=== PATIENT | male | born 1995 | race Hispanic/Latino ===

== ENCOUNTER 2017-07-03 03:05 | Emergency (ER) | payer OTHER, SELFPAY ==
[2017-07-03 03:56] LABS: #Basophils 0.1 thou/uL (0.0-0.2); #Lymphocytes 2.7 thou/uL (1.20-3.40); #Monocytes 0.4 thou/uL (0.11-0.59); #Neutrophils 5.4 thou/uL (1.40-6.50); %Basophils 0.8 % (0.0-1.0); %Eosinophils 0.5 % (0.0-10.0); %Lymphocytes 31.1 % (28.0-48.0); %Monocytes 4.4 % (0.0-4.0); %Neutrophils 63.2 % (31.0-61.0); Hemoglobin 13.8 g/dL (14.0-18.0); Mean Corpuscular HGB CONC 33.6 g/dL (32.0-36.0); Mean Corpuscular Hemoglobin 29.9 pg (25.0-35.0); Mean Corpuscular Volume 88.8 fl (77.0-87.0); Platelet Count 229 thou/uL (130-400); RBC Distribution Width 11.8 % (11.5-14.5); Red Blood Cell (RBC) Count 4.62 mill/uL (4.00-5.20); White Blood Cell (WBC) Count 8.6 thou/uL (4.8-10.8)
[2017-07-03 04:09] LABS: ALT (SGPT) 17 U/L (8-55); AST (SGOT) 24 U/L (10-45); Albumin 4.5 g/dL (3.5-5.0); Alcohol 174 mg/dL (Less than 10); Alkaline Phosphatase 95 U/L (Less than 750); Anion Gap 15 mmol/L (10-20); BUN (Urea Nitrogen) 13 mg/dL (8.4-21.0); Bilirubin, Total 0.3 mg/dL (0.2-1.2); Calc. Creatinine Clearance 0 mL/min (70-130); Calcium 9.2 mg/dL (7.8-10.44); Carbon Dioxide 24 mmol/L (22-29); Chloride 102 mmol/L (98-107); Estimated GFR-MDRD Greater than 90; Globulin 2.8 g/dL (2.4-3.5); Glucose 110 mg/dL (70-105); Potassium 3.1 mmol/L (3.5-5.1); Protein, Total 7.3 g/dL (6.0-8.3); Sodium 138 mmol/L (136-145)
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
== END 2017-07-03 05:00 | disposition home or self-care (01) ==
LOC: ERS 03:05
DX: S60.411A Abrasion of left index finger, initial encounter (principal); S60.414A Abrasion of right ring finger, initial encounter; F10.129 Alcohol abuse with intoxication, unspecified; H55.00 Unspecified nystagmus; F17.200 Nicotine dependence, unspecified, uncomplicated; V43.52XA Car driver injured in collision with other type car in traffic accident, initial encounter
CPT/HCPCS: 36415; 70450; 72125; 80053; 80307; 85025

== ENCOUNTER 2021-09-23 14:07 | Emergency (ER) | payer SELFPAY ==
[2021-09-23 14:30] LABS: #Basophils 0.1 thou/uL (0.0-0.2); #Lymphocytes 2.4 thou/uL (1.20-3.40); #Monocytes 0.9 thou/uL (0.11-0.59); #Neutrophils 8.6 thou/uL (1.40-6.50); %Basophils 0.5 % (0.0-1.0); %Eosinophils 0.3 % (0.0-10.0); %Lymphocytes 19.9 % (21.0-51.0); %Monocytes 7.8 % (0.0-10.0); %Neutrophils 71.5 % (42.0-75.0); Hemoglobin 14.8 g/dL (14.0-18.0); Mean Corpuscular HGB CONC 32.9 g/dL (32.0-36.0); Mean Corpuscular Hemoglobin 28.8 pg (27.0-31.0); Mean Corpuscular Volume 87.7 fL (78.0-98.0); Mean Platelet Volume 6.6 fL (7.4-10.4); Platelet Count 250 thou/uL (130-400); RBC Distribution Width 12.3 % (11.5-14.5); Red Blood Cell (RBC) Count 5.12 mill/uL (4.70-6.10); White Blood Cell (WBC) Count 12.1 thou/uL (4.8-10.8)
[2021-09-23 14:57] LABS: ALT (SGPT) 24 U/L (8-55); AST (SGOT) 22 U/L (5-34); Albumin 4.5 g/dL (3.5-5.0); Alkaline Phosphatase 124 U/L (40-110); Anion Gap 15 mmol/L (10-20); BUN (Urea Nitrogen) 10 mg/dL (8.9-20.6); Bilirubin, Total 0.5 mg/dL (0.2-1.2); Calc. Creatinine Clearance 0 mL/min (70-130); Calcium 8.9 mg/dL (7.8-10.44); Carbon Dioxide 23 mmol/L (22-29); Chloride 102 mmol/L (98-107); Globulin 2.7 g/dL (2.4-3.5); Glucose 103 mg/dL (70-105); Lipase 20 U/L (8-78); Magnesium 1.9 mg/dL (1.6-2.6); Potassium 3.5 mmol/L (3.5-5.1); Protein, Total 7.2 g/dL (6.0-8.3); Sodium 136 mmol/L (136-145)
[2021-09-23] MEDS ORDERED: Famotidine/PF 20 mg/2ml Vial ONE (16:28)
[2021-09-23] MEDS ORDERED: Ondansetron PF 4 MG/2 ML Vial ONE (16:28)
[2021-09-23] MEDS ORDERED: Dicyclomine 20 MG/2 ML VIAL ONE (16:28)
== END 2021-09-23 18:42 | disposition home or self-care (01) ==
LOC: ERS 14:07
DX: R10.9 Unspecified abdominal pain (principal); R19.7 Diarrhea, unspecified; F17.210 Nicotine dependence, cigarettes, uncomplicated
CPT/HCPCS: 36415; 80053; 83605; 83690; 83735; 85025; 87040; 94760; 96372; 96374; 96375; J0500; J2405; S0028